=== PATIENT | female | born 1945 | race African-American/Black ===

== ENCOUNTER 2017-06-01 15:01 | Emergency (ER) | payer MEDICARE, MEDICAID ==
[~2017-06-01] VITALS: Ht 160 cm; Wt 45.0 kg
[2017-06-01] MEDS ORDERED: KETOROLAC 60MG/2ML VIAL IM ONE (19:00)
[2017-06-01] MEDS ORDERED: ACETAMINOPHEN WITH CODEINE 300/30MG TABLET PO ONE (19:00)
[2017-06-01] MEDS ORDERED: ONDANSETRON 4MG ODT PO ONE (19:00)
[2017-06-01 21:08] VITALS: BP 138/68
== END 2017-06-01 21:09 | disposition home or self-care (01) ==
LOC: ER 18:19
DX: G89.29 Other chronic pain (principal); M54.5 Low back pain; E78.00 Pure hypercholesterolemia, unspecified; F17.200 Nicotine dependence, unspecified, uncomplicated; Z88.0 Allergy status to penicillin
CPT/HCPCS: 72100; 96372; 99284; J1885; Q0162